=== PATIENT | male | born 1950 | race Caucasian/White ===

== ENCOUNTER 2022-12-19 11:19 | Outpatient (CLI) | payer MEDICARE | END 2022-12-19 11:20 | disposition home or self-care (01) | LOC: LAB 11:19 | PROVIDERS: ATTEND Urology | DX: C61 Malignant neoplasm of prostate (principal) | CPT/HCPCS: 36415; 84153 ==

== ENCOUNTER 2023-05-29 08:52 | Outpatient (CLI) | payer MEDICARE ==
[2023-05-29 09:06] LABS: BASOPHILS # (AUTO) 0.1 10^3/uL (0.0-0.1); BASOPHILS % (AUTO) 1.3 %; EOSINOPHILS # (AUTO) 0.3 10^3/uL (0.0-0.7); EOSINOPHILS % (AUTO) 4.5 %; HCT - HEMATOCRIT 50.6 % (42.0-52.0); HGB - HEMOGLOBIN 16.5 g/dL (14.0-18.0); LYMPHOCYTES # (AUTO) 1.5 10^3/uL (1.5-3.5); LYMPHOCYTES % (AUTO) 27.2 %; MEAN CORPUSCULAR HEMOGLOBIN 28.9 pg (27.0-31.0); MEAN CORPUSCULAR HGB CONC 32.6 g/dL (32.0-36.0); MEAN CORPUSCULAR VOLUME 88.8 fL (80.0-94.0); MEAN PLATELET VOLUME 9.8 fL (7.4-11.4); MONOCYTES # (AUTO) 0.8 10^3/uL (0.0-1.0); NEUTROPHILS # (AUTO) 2.9 10^3/uL (1.5-6.6); NEUTROPHILS % (AUTO) 52.6 %; PLT - PLATELET COUNT 285 10^3/uL (130-450); RED CELL DISTRIBUTION WIDTH 13.3 % (12.0-15.0); WHITE BLOOD COUNT 5.6 x10^3/uL (4.8-10.8)
[2023-05-29 09:17] LABS: ALBUMIN 4.4 g/dL (3.2-5.5); ALBUMIN/GLOBULIN RATIO 1.5 (1.0-2.2); ALKALINE PHOSPHATASE 52 IU/L (42-121); ALT ALANINE AMINOTRANSFERASE 24 IU/L (10-60); AST ASPARTATE AMINOTRANSFERASE 23 IU/L (10-42); BUN - BLOOD UREA NITROGEN 16 mg/dL (6-20); CALCIUM 9.6 mg/dL (8.5-10.3); CARBON DIOXIDE - CO2 28 mmol/L (21-32); CHLORIDE 105 mmol/L (101-111); CHOL/HDL RATIO 3.2 (<5.0); CHOLESTEROL 167 mg/dL; CREATININE 1.1 mg/dL (0.6-1.3); GFR - MDRD 66 (>89); GLUCOSE 104 mg/dL (74-104); HDL CHOLESTEROL 53 mg/dL; LDL CHOLESTEROL,CALCULATED 90 mg/dL; LDL/HDL RATIO 1.7 (<3.6); POTASSIUM 4.5 mmol/L (3.5-4.5); SODIUM 138 mmol/L (135-145); TOTAL PROTEIN 7.4 g/dL (6.4-8.9); TRIGLYCERIDES 121 mg/dL (48-352); VLDL CHOLESTEROL 24 mg/dL
== END 2023-05-29 08:53 | disposition home or self-care (01) ==
LOC: LAB 08:52
DX: I10 Essential (primary) hypertension (principal); E87.1 Hypo-osmolality and hyponatremia; I48.20 Chronic atrial fibrillation, unspecified; R53.1 Weakness; D50.9 Iron deficiency anemia, unspecified; E78.49 Other hyperlipidemia; R97.20 Elevated prostate specific antigen [PSA]; C61 Malignant neoplasm of prostate
CPT/HCPCS: 36415; 80053; 80061; 83721; 84153; 85025

== ENCOUNTER 2023-09-11 08:00 | Outpatient (CLI) | payer MEDICARE ==
--- NOTE | 2023-09-11 16:11 | XRAY Report ---
PROCEDURE: Chest 2V INDICATIONS: FOCAL PNEUMONIA TECHNIQUE: 2 views of the chest were acquired. COMPARISON: None. FINDINGS: Surgical changes and devices: Cine loop recorder. Lungs and pleura: No pleural effusions or pneumothorax. Lungs are clear. Mediastinum: Mediastinal contours appear normal. Heart size is normal. Bones and chest wall: No suspicious bony lesions. Overlying soft tissues appear unremarkable. IMPRESSION: No acute cardiopulmonary process. Reviewed by: Pattie Contreras MD on 09/11/2023 4:10 PM PDT Approved by: Pattie Contreras MD on 09/11/2023 4:10 PM PDT Station ID: [id number]
== END 2023-09-11 23:59 | disposition home or self-care (01) ==
LOC: DI.S 08:00
PROVIDERS: ATTEND Emergency Medicine
DX: J18.9 Pneumonia, unspecified organism (principal)

== ENCOUNTER 2023-10-02 08:10 | Outpatient (CLI) | payer MEDICARE ==
[2023-10-02 09:05] LABS: HCT - HEMATOCRIT 42.6 % (42.0-52.0); HGB - HEMOGLOBIN 14.3 g/dL (14.0-18.0); MEAN CORPUSCULAR HEMOGLOBIN 29.9 pg (27.0-31.0); MEAN CORPUSCULAR HGB CONC 33.6 g/dL (32.0-36.0); MEAN CORPUSCULAR VOLUME 89.1 fL (80.0-94.0); MEAN PLATELET VOLUME 9.7 fL (7.4-11.4); RED BLOOD COUNT 4.78 10^6/uL (4.70-6.10); RED CELL DISTRIBUTION WIDTH 12.5 % (12.0-15.0); WHITE BLOOD COUNT 5.5 x10^3/uL (4.8-10.8)
== END 2023-10-02 08:11 | disposition home or self-care (01) ==
LOC: LAB 08:10
PROVIDERS: ATTEND Urology
DX: E29.1 Testicular hypofunction (principal); R53.83 Other fatigue; C61 Malignant neoplasm of prostate
CPT/HCPCS: 36415; 84153; 84403; 85027

== ENCOUNTER 2023-11-07 08:51 | Outpatient (CLI) | payer MEDICARE ==
--- NOTE | 2023-11-07 10:08 | XRAY Report ---
PROCEDURE: Ankle 3+V RT INDICATIONS: HEEL PAIN,RIGHT TECHNIQUE: 3 views of the ankle were acquired. COMPARISON: None. FINDINGS: Bones: No fractures or dislocations. Ankle mortise is normally aligned. No suspicious bony lesions . Soft tissues: No tibiotalar joint effusion. Achilles tendon appears normal. IMPRESSION: No acute bony abnormality. No significant joint effusion. Reviewed by: Yuan Espana MD on 11/07/2023 9:07 AM ANICETO Approved by: Yuan Espana MD on 11/07/2023 9:07 AM AKCOSTA Station ID: [id number]
== END 2023-11-07 08:52 | disposition home or self-care (01) ==
LOC: DI.S 08:51
PROVIDERS: ATTEND Physician Assistant Surgical
DX: M79.671 Pain in right foot (principal)

== ENCOUNTER 2023-11-27 08:00 | Outpatient (CLI) | payer MEDICARE ==
--- NOTE | 2023-11-27 13:18 | XRAY Report ---
PROCEDURE: Chest 2V INDICATIONS: ACUTE COUGH TECHNIQUE: 2 views of the chest were acquired. COMPARISON: 09/11/2023. FINDINGS: Surgical changes and devices: Left chest wall pacing device is seen. Lungs and pleura: No pleural effusions or pneumothorax. Lungs are clear. Mediastinum: Mediastinal contours appear normal. Heart size is normal. Bones and chest wall: No suspicious bony lesions. Overlying soft tissues appear unremarkable. IMPRESSION: No acute cardiopulmonary process. Reviewed by: Anastacio Warren MD on 11/27/2023 1:16 PM PDT Approved by: Anastacio Warren MD on 11/27/2023 1:16 PM PDT Station ID: [id number]
== END 2023-11-27 23:59 | disposition home or self-care (01) ==
LOC: DI.S 08:00
PROVIDERS: ATTEND Registered Nurse
DX: R05.1 Acute cough (principal); Z87.01 Personal history of pneumonia (recurrent)

== ENCOUNTER 2023-11-27 08:00 | Outpatient (CLI) | payer MEDICARE | END 2023-11-27 23:59 | disposition home or self-care (01) | LOC: LAB.S 08:00 | PROVIDERS: ATTEND Registered Nurse | DX: R05.1 Acute cough (principal); Z87.01 Personal history of pneumonia (recurrent) ==

== ENCOUNTER 2024-07-13 13:58 | Observation (INO) ==
--- NOTE | 2024-07-13 14:50 | ED Physician Documentation ---
PD HPI CHEST PAIN Stated complaint Stated Complaint: CHEST PX,LT EYE VISION LOSS Chief complaint Chief Complaint: Neuro Additional information Additional information: 74-year-old male with history of a flutter requiring an ablation, BPH, hyperlipidemia has loop recorder presents emergency department for concerns of left vision loss, chest pain, double/quadruple vision changes. Patient says that this happened about a couple weeks ago he followed up with his blow down helper Dr. Padilla who decided to put him back on Eliquis and sotalol. Today while he was walking around he started to notice left vision changes again describes it as the clarity of the picture was very blurred having a hard time thinking imaging and then this lasted for about 15 seconds and turned into double/quadruple vision followed by chest pain that lasted for about 15 seconds. Patient says for about the last month now he is also been experiencing increased shortness of breath with minimal exertion which is atypical for him. No nausea or vomiting vision is resolved back to normal now his chest pain is also back to normal now. Jane Coma Scale Assess Eye opening: Spontaneous Verbal response: Oriented Motor response: Obeys Commands Total score: 15 Meds/Allgy Home Medications Ambulatory Orders Medication Instructions Recorded Confirmed simvastatin 20 mg tablet (Zocor) 20 mg PO QPM 10/02/23 07/13/24 tadalafil 5 mg tablet See Rx Instructions .Route 02/12/24 07/13/24 .COMPLEX #90 tabs testosterone cypionate 100 mg/mL 80 mg (0.8 mL) IM QWEEK #10 mL 05/28/24 07/13/24 intramuscular oil apixaban 5 mg tablet (Eliquis) 5 mg PO BID 07/13/24 07/13/24 sotalol 80 mg tablet 80 mg PO DAILY 07/13/24 07/13/24 Allergies Allergies Allergy/AdvReac Type Severity Reaction Status Date / Time ibuprofen Allergy Mild Unknown Verified 07/13/24 14:46 PFSH Active Problems All Active Problems (Updated 07/13/24 @ 20:00 by Maurice Monteiro DNP) Symptomatic anemia (Acute) Chest pain (Acute) Blurred vision (Acute) Melena (Acute) Anemia (Acute) TIA (transient ischemic attack) (Acute) Prostate cancer (Acute) Enlarged prostate (Acute) Screening for thyroid disorder (Acute) Long-term use of high-risk medication (Acute) Hx of atrial flutter (Acute) Hypogonadism male (Acute) Hx of malignant neoplasm of prostate (Acute) Hyperlipidemia (Acute) Preventative health care (Acute) Medical History Medical History (Updated 07/13/24 @ 20:00 by Maurice Monteiro DNP) Atrial flutter Surgical History Surgical History H/O shoulder surgery S/P ablation of atrial flutter Family History Family History (Updated 02/18/24 @ 12:04 by Unique Connelly MA) Father Heart attack Mother CVA (cerebral vascular accident) Brother Alcoholism Social History Social History (Updated 07/13/24 @ 14:19 by Michael Carmona, RN) Smoking Status: Never smoker Do you dip or chew tobacco?: No Do you vape?: No Living arrangement: At home Marital Status: Relationship: Level: Independent Do you feel safe in your home environment?: Yes Suffered physical, verbal, emotional, or financial abuse?: No History of Abuse: No Frequency: Occasional Substance Use: denies use POLST Patient has POLST: No Exam Constitutional normal general appearance, no apparent distress, average body habitus, no limitations and alert HENMT normocephalic Eyes PERRL Chest inspection of chest normal Respiratory breath sounds equal bilaterally and normal respiratory effort Cardiovascular normal heart rate noted and regular rhythm noted Gastrointestinal abdomen normal to inspection, abdomen soft to palpation, nontender to palpation, nondistended and normoactive bowel sounds Extremities normal to inspection Skin skin color abnormal (pale) Results Vitals Vitals: Vital Signs - 24 hr 07/13/24 14:09 07/13/24 14:17 07/13/24 16:17 Temperature 36.4 C L Temperature Source Temporal Artery Scan Pulse Rate 73 72 68 Respiratory Rate 18 19 14 Blood Pressure 135/72 H 135/70 H 145/77 H O2 Saturation 100 98 99 O2 Source Room air Room air Room air Pain Intensity 0 0 0 07/13/24 18:00 Temperature Temperature Source Pulse Rate 69 Respiratory Rate 16 Blood Pressure 141/75 H O2 Saturation 98 O2 Source Room air Pain Intensity 0 Oxygen O2 Source Room air EKG (time done) 1429: EKG releavant findings:: EKG personally interpreted by author of this note. Relevant findings are: Rate: Rate (enter#) (71) Rhythm: NSR and Other (PVCs) Grace: Normal Intervals: Normal GA Ischemia: Normal ST segments Computer interpretation: Agree with computer Labs Labs: Microbiology 07/13/24 18:25 Occult Blood - Final Stool Laboratory Tests 07/13/24 07/13/24 07/13/24 15:08 18:04 18:36 WBC 7.3 RBC 3.27 L Hgb 8.1 L 8.3 L Hct 26.6 L 28.0 L MCV 81.3 MCH 24.8 L MCHC 30.5 L RDW 14.5 Plt Count 464 H MPV 9.4 Neut # (Auto) 3.3 Lymph # (Auto) 1.7 [place] # (Auto) 1.1 H Eos # (Auto) 1.0 H Baso # (Auto) 0.2 H Absolute Nucleated RBC 0.00 Nucleated RBC % 0.0 ESR 18 D-Dimer < 200.0 L Sodium 135 Potassium 4.1 Chloride 107 Carbon Dioxide 24 Anion Gap 4.0 L BUN 19 Creatinine 1.1 Estimated GFR (MDRD) 65 L Glucose 94 Calcium 8.8 Total Bilirubin 1.0 AST 11 ALT 12 Alkaline Phosphatase 49 Troponin I High Sens 6.9 7.2 C-Reactive Protein < 0.5 Total Protein 6.4 Albumin 3.8 Globulin 2.6 Albumin/Globulin Ratio 1.5 Lipase 38 Rads (name of study) Chest x-ray: Relevant Findings:: Final report received and EMP independent interpretation of test Interpretation: IMPRESSION: No acute cardiopulmonary process. ct angio head/neck: Relevant Findings:: Final report received and EMP independent interpretation of test Interpretation: IMPRESSION: No significant intracranial arterial abnormality is seen. No significant abnormality is seen within the arteries of the neck, with note made of a 50% narrowing at the origin of the right internal carotid artery. CT head without: Relevant Findings:: Final report received and EMP independent interpretation of test Interpretation: IMPRESSION: No acute intracranial pathology. No intracranial hemorrhage is seen. If there is strong clinical concern for a stroke, please consider a dedicated brain MRI for further evaluation (assuming that there is no contraindication to MRI). PD Medical Decision Making ED course Complexity details: reviewed results, re-evaluated patient, d/w patient, d/w family and d/w eligibility consultant [facility] ED course: 74-year-old male presents emergency department for concerns of left eye vision change that lasted for about 15 seconds followed by chest pain. Patient has history of A-fib/a flutter for some reason he was taken off of his Eliquis and was just recently restarted on his Eliquis for similar episode that happened a couple weeks ago by his blow down helper Dr. Padilla. He endorses and feeling shortness of breath fatigue and dizziness now for the last several months. His hemoglobin in April of this year was 14 with a hematocrit of 44.7 it was rechecked today and his hemoglobin has come down to 8.1 with a hematocrit of 26.6. Patient does endorse some dark black bowel movements he says that he suffered from H. pylori about 4 to 5 years ago and was starting to take iron supplements which was intermittently helping so he was uncertain if he was having dark black bowel movements from the iron supplements or from melena. Last echogram was a couple days ago no hematemesis. D-dimer is negative making me less suspicious or concern for possible PE or DVT. A chest x-ray was complete for further evaluation given he had chest pain he had no acute cardiopulmonary abnormalities or findings CT head without was also complete which did not reveal any acute intracranial hemorrhages or other ab normalities. CT angio head and neck was also complete showed right narrowing of the right internal carotid artery but this would not explain the left vision loss. EKG shows normal sinus rhythm with PVCs and delta troponins are flat. Given that patient is having symptomatic anemia believe that he would benefit from hospitalization. I spoke with hospitalist Cyn Wagner who has agreed to admit the patient she did request a consult with neurology and I consulted with cardiology. Cardiology Dr. Live with [facility] does not think that patient needs to be transferred he recommends holding off on Eliquis until we can figure out source of bleeding for symptomatic anemia, guaiac positive for heme. Neurology Dr. Guzman does not think that transfer is required he said to go ahead and pursue a brain MRI tomorrow this sounds like it could likely be related to Optho but to go ahead and do an ESR CRP to rule out possible temporal arteritis which she has a low suspicion of. Patient is agreeable to stay, DENISE Azul hospitalist is admitting patient greatly appreciate her support and collaboration with patient. Discharge Plan Discharge Patient Disposition: ED Place in Observation Condition: Stable Clinical Impression: Blurred vision, Chest pain, Symptomatic anemia Interventions: ED Admission Assessment Last Done: 07/13/24 19:36
[2024-07-13 15:13] LABS: BASOPHILS # (AUTO) 0.2 10^3/uL (0.0-0.1); BASOPHILS % (AUTO) 2.3 %; EOSINOPHILS % (AUTO) 13.4 %; HCT - HEMATOCRIT 26.6 % (42.0-52.0); HGB - HEMOGLOBIN 8.1 g/dL (14.0-18.0); LYMPHOCYTES # (AUTO) 1.7 10^3/uL (1.5-3.5); LYMPHOCYTES % (AUTO) 23.4 %; MEAN CORPUSCULAR HEMOGLOBIN 24.8 pg (27.0-31.0); MEAN CORPUSCULAR HGB CONC 30.5 g/dL (32.0-36.0); MEAN CORPUSCULAR VOLUME 81.3 fL (80.0-94.0); MEAN PLATELET VOLUME 9.4 fL (7.4-11.4); MONOCYTES # (AUTO) 1.1 10^3/uL (0.0-1.0); MONOCYTES % (AUTO) 15.4 %; NEUTROPHILS # (AUTO) 3.3 10^3/uL (1.5-6.6); NEUTROPHILS % (AUTO) 45.1 %; PLT - PLATELET COUNT 464 10^3/uL (130-450); RED BLOOD COUNT 3.27 10^6/uL (4.70-6.10); RED CELL DISTRIBUTION WIDTH 14.5 % (12.0-15.0); WHITE BLOOD COUNT 7.3 x10^3/uL (4.8-10.8)
[2024-07-13 15:28] LABS: ALBUMIN 3.8 g/dL (3.2-5.5); ALBUMIN/GLOBULIN RATIO 1.5 (1.0-2.2); CALCIUM 8.8 mg/dL (8.5-10.3); CREATININE 1.1 mg/dL (0.6-1.3); POTASSIUM 4.1 mmol/L (3.5-4.5); TOTAL PROTEIN 6.4 g/dL (6.4-8.9)
[2024-07-13 15:34] LABS: TROPONIN I HIGH SENSITIVITY 6.9 ng/L (2.3-19.7)
--- NOTE | 2024-07-13 15:47 | XRAY Report ---
PROCEDURE: XR Chest 1V INDICATIONS: Chest Pain TECHNIQUE: One view of the chest was acquired. COMPARISON: Chest x-ray 11/27/2023 FINDINGS: Surgical changes and devices: Implantable loop recorder device overlying the left heart silhouette Lungs and pleura: No pleural effusions or pneumothorax. No consolidation. Mediastinum: Mediastinal contours appear normal. Heart size is normal. Bones and chest wall: No suspicious bony lesions. Overlying soft tissues appear unremarkable. IMPRESSION: No acute cardiopulmonary process. Reviewed by: Danny Coyle MD on 07/13/2024 2:45 PM AKDT Approved by: Danny Coyle MD on 07/13/2024 2:45 PM AKDT Station ID: [id number]
[2024-07-13] MEDS ORDERED: iohexoL-300 100 ML VIAL ONE (15:55)
[2024-07-13] MEDS: iohexoL-300 100 ML VIAL IVP ONE (16:39)
--- NOTE | 2024-07-13 16:57 | CT Report ---
PROCEDURE: CT Angio Head/Neck INDICATIONS: left eye vision changes, double vision TECHNIQUE: After the administration of intravenous contrast, 1 mm thick sections acquired from the aortic arch t hrough the [place] of [place]. 3-dimensional zibilns-nhignejqo-znwmiaevbv (MIP) and/or volume renderin g reformats were acquired of the central intracranial vasculature and neck separately. For radiation dose reduction, the following was used: automated exposure control, adjustment of mA and/or kV acco rding to patient size. CONTRAST: 80 ML OMNI COMPARISON: Correlation is made with the accompanying imaging. FINDINGS: Image quality: There is streak artifact seen through the level of the shoulders. There is artifact a ssociated with the metallic dental work. HEAD CT: CSF Spaces: Basal cisterns are patent. No extra-axial fluid collections. Ventricles are normal in size and shape. Brain: No significant abnormality is seen for scanning technique. Skull and face: Calvarium and visualized facial bones appear intact, without suspicious lesions. Sinuses: Generalized moderate nasal thickening can be seen throughout the paranasal sinuses. No signi ficant abnormal fluid can be seen within the mastoid air cells. . HEAD CT ANGIOGRAPHY: Anterior circulation: Intracranial internal carotid arteries are normal in size and flow. The flow within the paired anterior cerebral arteries is normal and symmetric. The flow within the middle cer ebral arteries is normal and symmetric. The anterior communicating artery is seen. No aneurysms are seen. Posterior circulation: Visualized portions of the vertebral arteries demonstrate normal caliber, and join to form a normal appearing basilar artery. Flow within the posterior cerebral arteries is norm al and symmetric. No aneurysms are seen. NECK CT ANGIOGRAPHY: Carotid system: The great vessels demonstrate a conventional anatomy as they arise from the aortic a rch. The origins of the common carotid arteries appear patent. The common carotid arteries demonstr ate normal caliber and courses. The bifurcation regions demonstrate atherosclerotic irregularity and calcification. On the right, there is a 50% stenosis of the internal carotid artery origin. No signi ficant stenosis can be seen on the left. The internal carotid arteries demonstrate normal calibers an d courses. Posterior circulation: The origins of the vertebral arteries both appear widely patent. The more rainey perior extracranial portions of both vertebral arteries also demonstrate normal courses and calibers. They join to form a normal appearing basilar artery. Soft tissues: Visualized neck soft tissues demonstrate no suspicious abnormalities. Bones: No suspicious bony lesions. Visualized cervical spine appears normally aligned. Moderate ce rvical spine degenerative change can be seen. IMPRESSION: No significant intracranial arterial abnormality is seen. No significant abnormality is seen within the arteries of the neck, with note made of a 50% narrowing at the origin of the right internal carotid artery. The estimate of stenosis included in the report of the imaging study was calculated using the NASCET method Reviewed by: Silver Patterson MD on 07/13/2024 3:56 PM ANICETO Approved by: Silver Patterson MD on 07/13/2024 3:56 PM ANICETO Station ID: [id number]
--- NOTE | 2024-07-13 16:58 | CT Report ---
PROCEDURE: CT Head WO INDICATIONS: left vision changes TECHNIQUE: Noncontrast 4.5 mm thick angled axial sections acquired from the foramen magnum to the vertex. For r adiation dose reduction, the following was used: automated exposure control, adjustment of mA and/or kV according to patient size. COMPARISON: Correlation is made with the accompanying imaging. FINDINGS: Image quality: Excellent. CSF spaces: Basal cisterns are patent. No extra-axial fluid collections. Ventricles are normal in size and shape. Brain: No midline shift. No intracranial masses or hemorrhage. [place]-white matter interface is norm al. Skull and face: Calvarium and visualized facial bones are intact, without suspicious lesions. Sinuses: Visualized sinuses and mastoids are clear. IMPRESSION: No acute intracranial pathology. No intracranial hemorrhage is seen. If there is strong clinical concern for a stroke, please consider a dedicated brain MRI for further e valuation (assuming that there is no contraindication to MRI). Reviewed by: Silver Patterson MD on 07/13/2024 3:56 PM ANICETO Approved by: Silver Patterson MD on 07/13/2024 3:56 PM ANICETO Station ID: [id number]
--- NOTE | 2024-07-13 18:19 | HISTORY & PHYSICAL EXAMINATION ---
Chief Complaint Chief Complaint Chief Complaint: feeling weak and dizzy History of Present Illness Admitted From Admitted From:: home History Obtained From Records Reviewed: PCP and urology visits History of Present Illness HPI Comment/Other: 74 yo male who presents to ED this afternoon with complaints of feeling poorly. for the last 2-3 weeks has had CP and decreased exercise tolerance. Saw ethylbenzene converter operator, then was restarted on Eliquis and sotolol (paroxysmal a fib s/p ablation) within the last week. previously was on ASA. Today came to ED because he had an episode of his left eye "graying out". this lasted about 15 sec, and now patient is back to normal. no headaches. He has had 1 additional episode of this in the last week or so He notes that on 06/02 he started to notice that he gets out of breath when he walks his dog. he has always enjoyed a high level of cardiovascular fitness. It was about 5 weeks ago that he noted that his heart rate, which is normally in the 60's started to be in the 70's and 80's. Around this time, also noted that he was getting short breath when he walked the dog. notes intermittent abdominal bloating, and feeling "gurgly" in his abdomen which is often followed by a melanotic stool, since about mid May. He has a history of paroxysmal atrial fibrillation. He is status post ablation. His cardiologists are Refugio Padilla and Sukhdeep Ponce at [facility]. When he started to notice this shortness of breath and chest discomfort he called his ethylbenzene converter operator who recommended that he restart his sotalol and his Eliquis. Less than a week ago he started sotalol 80 mg at at bedtime and Eliquis 5 mg twice daily. He was previously on tadalafil 2.5 mg a day for prostate cancer testosterone once weekly and D3. As noted above he had also been on aspirin but dropped this in favor of the Eliquis. He has noted intermittent melena for quite a long time. He has been treated for H. pylori in the past. He notes that this was diagnosed in April 2021 at [facility] when he had previous GI bleed and was treated with endoscopy and colonoscopy and thus the H. pylori diagnosis. He has been on a statin since he was in his 50s. He had an elevated coronary calcium score many years ago and was started on a statin at that time but really has not had any problems until the atrial fibrillation came up. He has a loop recorder, unclear if that is MRI compatible. He states he does have an advanced directive but has been a long time since he is thought about that. He does not have a POLST. He does not know what he would want his CODE STATUS to be. He notes that his Jody would be his surrogate decision maker should he need 1. I am making him full code until he can think about this more. Hgb was 14.1 on 05/16/24. It is 8.1 today. Meds/Allgy Home Medications Ambulatory Orders Medication Instructions Recorded Confirmed simvastatin 20 mg tablet (Zocor) 20 mg PO QPM 10/02/23 07/13/24 tadalafil 5 mg tablet See Rx Instructions .Route 02/12/24 07/13/24 .COMPLEX #90 tabs testosterone cypionate 100 mg/mL 80 mg (0.8 mL) IM QWEEK #10 mL 05/28/24 07/13/24 intramuscular oil apixaban 5 mg tablet (Eliquis) 5 mg PO BID 07/13/24 07/13/24 sotalol 80 mg tablet 80 mg PO DAILY 07/13/24 07/13/24 Allergies Allergies Allergy/AdvReac Type Severity Reaction Status Date / Time ibuprofen Allergy Mild Unknown Verified 07/13/24 14:46 PFSH Active Problems All Active Problems (Updated 07/13/24 @ 18:24 by DENISE Azul) Melena (Acute) Anemia (Acute) TIA (transient ischemic attack) (Acute) Prostate cancer (Acute) Enlarged prostate (Acute) Screening for thyroid disorder (Acute) Long-term use of high-risk medication (Acute) Hx of atrial flutter (Acute) Hypogonadism male (Acute) Hx of malignant neoplasm of prostate (Acute) Hyperlipidemia (Acute) Preventative health care (Acute) Medical History Medical History (Updated 07/13/24 @ 18:24 by DENISE Azul) Atrial flutter Surgical History Surgical History H/O shoulder surgery S/P ablation of atrial flutter Family History Family History (Updated 02/18/24 @ 12:04 by Unique Connelly MA) Father Heart attack Mother CVA (cerebral vascular accident) Brother Alcoholism Social History Social History (Updated 07/13/24 @ 14:19 by Michael Carmona RN) Smoking Status: Never smoker Do you dip or chew tobacco?: No Do you vape?: No Living arrangement: At home Marital Status: Relationship: Level: Independent Do you feel safe in your home environment?: Yes Suffered physical, verbal, emotional, or financial abuse?: No History of Abuse: No Frequency: Occasional Substance Use: denies use POLST Patient has POLST: No Conclusion/Plan Problem List (1) Anemia: Plan: symptomatic anemia. Not tachycardic but beta blocked. no hypotension, but having HERNANDEZ, and dizziness. his visual symptoms could be secondary to his symptomatic anemia, or could be neurological in nature. I will get iron studies with a.m. labs and treat with iron and B vitamins as indicated I will follow hemoglobins every 6 hours. I have discussed this patient with Maurice Monteiro in the emergency department decision was made to admit him for workup of his anemia and neurological symptoms. She states that he is guaiac positive from below. Emergency department has consulted general surgery, Dr. Raphael who will assist with possible endoscopy/colonoscopy. Patient has history of the same in April 2021 at [facility]. At that time he was diagnosed with H. pylori and treated appropriately. He has had intermittent melanotic stools for about 5 weeks. He has only been restarted on his Eliquis for about 5 days.I am holding his Eliquis on admission (2) TIA (transient ischemic attack): Plan: Patient with intermittent visual blurring episodes which have happened twice now. This is not like a shade being pulled over his eyes but rather a visual graying that seems to spontaneously resolve. He denies any history of stroke or TIA. He has been on a statin since he was in his 50s due to an elevated coronary calcium score. CTA of the head neck does call attention to a 50% stenosis of the right internal carotid artery. There is no evidence of CVA seen on CT nor does patient have any persistent neurologic deficits at this time. I will admit the patient to observation status. I will place him on telemetry. I will hold his Eliquis (due to likely GI bleed) but continue his beta-raji. I will order MRI of the head for the morning to rule out any occult stroke. Emergency department consulted neurology who recommended ESR and CRP and to start steroids for possible optic neuritis if the acute phase reactants were positive. His CRP is less than 0.5. His ESR is 18. There is no indication to start steroids at this time. (3) Hx of atrial flutter: Plan: No episodes of tachycardia since presenting to the emergency department. He has a history of paroxysmal atrial fibrillation. He is status post ablation some years ago. He has done well with this but started to have symptoms as described above several weeks ago. He may contact with his ethylbenzene converter operator who is planning a stress test and echocardiogram in the near future. I will be checking an echocardiogram as part of his neurological workup. I am holding his Eliquis but continuing his beta-raji (4) Melena: Plan: Guaiac positive in the emergency department. Patient with a hemoglobin of 14.1 on 05/16/2024 and 8.1 on presentation to the emergency department today. This is symptomatic as he has been experiencing dizziness and shortness of breath on exertion. I think it is possible that his visual changes are also related to his symptomatic anemia but will continue with stroke workup in the instance that this was a TIA (5) Prostate cancer: Plan: He is on tadalafil 2.5 mg a day at home. I will continue this. He also takes estrogen injections weekly. He is under the care of Dr. Heath of urology. Plan Admission for symptomatic anemia/GI bleed, possible TIA. See treatment pathway above. I am admitting him to observation status overnight and will consider conversion to inpatient status depending on findings of serial labs, telemetry monitoring and the opinion of the general surgeon. I have spent 85 minutes in the care of this patient today. This includes time cxso-me-joyy, review and ordering of diagnostic imaging and laboratory studies and consultation with other providers. Monitoring the patient's signs symptoms, evaluation of medication effectiveness and patient's response to treatment. Lab Results Lab results reviewed: Yes 07/13/24 18:36 07/13/24 15:08 EKG Results EKG Interpreted Independently: Yes EKG Findings: sinus w PVCs Core Measures Anticipated LOS I expect patient to be DC'd or transferred within 96 hours.: Yes Issues Hospital Issues and Management Plan: symptomatic anemia vs neurological issues causing his vision changes. Will pursue stroke workup as well as anemia workup. ED spoke with neurology who recommended checking ESR and CRP for elevation, and if positive, consider temporal arteritis. Hgb much lower than baseline. Will admit for echo, telemetry, MRI brain, serial hemoglobins, iron studies, gen surg to consult for possible endoscopy. Will hold eliquis in light of GIB, continue beta raji. DVT/VTE - Prophylaxis VTE/DVT Device ordered at admit?: Yes VTE/DVT Prophylaxis med ordered at admit?: No Not Ordered - Medical Reason: Contraindicated
[2024-07-13] MEDS: ASPIRIN CHEW 81 MG TABLET PO STA (18:33)
[2024-07-13 18:40] LABS: HGB - HEMOGLOBIN 8.3 g/dL (14.0-18.0)
[2024-07-13] MEDS ORDERED: ONDANSETRON ODT 4 MG TABLET TL PRN (19:37)
[2024-07-13] MEDS ORDERED: SODIUM CHLORIDE FLUSH 0.9% 10 ML SYRINGE IVP PRN (19:37)
[2024-07-13 20:00] LABS: IRON < 10 ug/dL (50-212); TOTAL IRON BINDING CAPACITY 531 ug/dL (250-450); TRANSFERRIN 379 mg/dL (203-362)
[2024-07-13] MEDS: ATORVASTATIN 10 MG TABLET PO SCH (20:45)
[2024-07-13] MEDS: SOTALOL 80 MG TABLET PO SCH (20:46)
[2024-07-13] MEDS: FAMOTIDINE 20 MG/2 ML VIAL IVP SCH (20:46)
[2024-07-14] MEDS: SODIUM CHLORIDE 0.9% 1,000 ML IV SCH (00:52)
[2024-07-14] MEDS: ACETAMINOPHEN 325 MG TABLET PO PRN (00:53)
[2024-07-14] MEDS: SODIUM CHLORIDE FLUSH 0.9% 10 ML SYRINGE IVP SCH (00:53)
[2024-07-14 05:29] LABS: BASOPHILS # (AUTO) 0.2 10^3/uL (0.0-0.1); BASOPHILS % (AUTO) 2.6 %; EOSINOPHILS % (AUTO) 14.3 %; HCT - HEMATOCRIT 26.9 % (42.0-52.0); LYMPHOCYTES # (AUTO) 1.7 10^3/uL (1.5-3.5); LYMPHOCYTES % (AUTO) 24.1 %; MEAN CORPUSCULAR HGB CONC 29.7 g/dL (32.0-36.0); MEAN CORPUSCULAR VOLUME 80.8 fL (80.0-94.0); MEAN PLATELET VOLUME 9.6 fL (7.4-11.4); MONOCYTES % (AUTO) 13.2 %; NEUTROPHILS # (AUTO) 3.3 10^3/uL (1.5-6.6); NEUTROPHILS % (AUTO) 45.5 %; PLT - PLATELET COUNT 482 10^3/uL (130-450); RED BLOOD COUNT 3.33 10^6/uL (4.70-6.10); RED CELL DISTRIBUTION WIDTH 14.6 % (12.0-15.0); WHITE BLOOD COUNT 7.2 x10^3/uL (4.8-10.8)
[2024-07-14 05:44] LABS: CALCIUM 8.4 mg/dL (8.5-10.3); CREATININE 1.1 mg/dL (0.6-1.3); POTASSIUM 4.1 mmol/L (3.5-4.5)
[2024-07-14 06:35] LABS: DIFFERENTIAL COMMENT MANUAL=AUTO DIFF; PLATELET ESTIMATE, MANUAL INCREASED (>450,000) (NORMAL); PLATELET MORPHOLOGY NORMAL APPEARANCE (NORMAL); RBC MORPHOLOGY (MULTIPLE) 1+ HYPOCHROMASIA (NORMAL); WBC MORPHOLOGY (MULTIPLE) NORMAL APPEARANCE (NORMAL)
--- NOTE | 2024-07-14 10:32 | CONSULTATION NOTE ---
Referring Provider Name of Referring Provider:: Conrad Martinez) Consult Date: 07/14/24 Chief Complaint Chief Complaint Chief Complaint: I've been feeling lightheaded History of Present Illness Admitted From Admitted From:: ED History Obtained From Records Reviewed: yes ([facility] records being obtained) History obtained from: patient, primary team, chart Exam Limitations: none History of Present Illness HPI Comment/Other: This is a very pleasant 74-year-old gentleman who has a remote history of atrial flutter which was treated with a cardiac ablation several years ago. He also has a history of prostate cancer. He had melena in 2021 and had upper and lower endoscopy at that time. He was found to have H. pylori which was treated. The patient reports he was drinking "too much" hard alcohol (whiskey and vodka) around the time of this diagnosis, and cut down to 1 to 2 glasses of wine per day until about 2 weeks ago when he stopped drinking alcohol and caffeine altogether. He does not use any tobacco products. The patient reports an episode of lightheadedness and double vision 2 weeks ago. After this episode, he talked to his rack loader who stated that his loop recorder demonstrated atrial fibrillation. At that time, the patient was started back on Eliquis and sotalol. The patient also reports using Aleve and taking aspirin, but stopped these medications prior to starting on Eliquis. He has only been using Tylenol for pain for the last 2 weeks. The patient was previously on iron, which she stopped at least 2 weeks ago. When he was taking iron, he reports constipation and black stools. He thinks he may have had 1 or 2 dark stools since starting on Eliquis. His last bowel movement was this morning, and was "Tootsie Roll brown". He reports occasional decreased caliber of stool when he is having softer bowel movements, but has normal caliber stool when he is constipated. He reports occasional bloating and abdominal discomfort when he is constipated, with but this is relieved with bowel movements. He denies any recent unintentional weight loss. He has no family history of colon cancer or inflammatory bowel disease. [facility] Active Problems All Active Problems Symptomatic anemia (Acute) Chest pain (Acute) Blurred vision (Acute) Melena (Acute) Anemia (Acute) TIA (transient ischemic attack) (Acute) Prostate cancer (Acute) Enlarged prostate (Acute) Screening for thyroid disorder (Acute) Long-term use of high-risk medication (Acute) Hx of atrial flutter (Acute) Hypogonadism male (Acute) Hx of malignant neoplasm of prostate (Acute) Hyperlipidemia (Acute) Preventative health care (Acute) Medical History Medical History Atrial flutter Surgical History Surgical History H/O shoulder surgery left S/P ablation of atrial flutter Family History Family History Father Heart attack Mother CVA (cerebral vascular accident) Brother Alcoholism Social History Social History (Updated 07/14/24 @ 10:36 by Marla Gonzalez MD) Smoking Status: Never smoker Do you dip or chew tobacco?: No Do you vape?: No Living arrangement: At home Marital Status: Relationship: Level: Independent Do you feel safe in your home environment?: Yes Suffered physical, verbal, emotional, or financial abuse?: No History of Abuse: No Frequency: Daily ETOH Use Details: 1-2 Glasses of wine per day, stopped drinking alcohol about 2 weeks ago (06/27/24) Substance Use: denies use Occupation: residential solar consultant Retired: No POLST Patient has POLST: No Meds/Allgy Home Medications Ambulatory Orders Medication Instructions Recorded Confirmed simvastatin 20 mg tablet (Zocor) 20 mg PO QPM 10/02/23 07/13/24 tadalafil 5 mg tablet See Rx Instructions .Route 02/12/24 07/13/24 .COMPLEX #90 tabs testosterone cypionate 100 mg/mL 80 mg (0.8 mL) IM QWEEK #10 mL 05/28/24 07/13/24 intramuscular oil apixaban 5 mg tablet (Eliquis) 5 mg PO BID 07/13/24 07/13/24 sotalol 80 mg tablet 80 mg PO DAILY 07/13/24 07/13/24 Allergies Allergies Allergy/AdvReac Type Severity Reaction Status Date / Time ibuprofen Allergy Mild Unknown Verified 07/13/24 14:46 Results Lab Results 07/14/24 10:06 07/14/24 05:16 Other Lab Results: Lab Results x24hrs 07/14/24 07/14/24 07/14/24 Range/Units 10:06 05:16 02:05 WBC 7.2 (4.8-10.8) x10^3/uL RBC 3.33 L (4.70-6.10) 10^6/uL Hgb 8.3 L 8.0 L 7.8 L (14.0-18.0) g/dL Hct 26.9 L (42.0-52.0) % MCV 80.8 (80.0-94.0) fL MCH 24.0 L (27.0-31.0) pg MCHC 29.7 L (32.0-36.0) g/dL RDW 14.6 (12.0-15.0) % Plt Count 482 H (130-450) 10^3/uL MPV 9.6 (7.4-11.4) fL Neut # (Auto) 3.3 (1.5-6.6) 10^3/uL Lymph # (Auto) 1.7 (1.5-3.5) 10^3/uL [place] # (Auto) 1.0 (0.0-1.0) 10^3/uL Eos # (Auto) 1.0 H (0.0-0.7) 10^3/uL Baso # (Auto) 0.2 H (0.0-0.1) 10^3/uL Absolute Nucleated RBC 0.00 x10^3/uL Band Neuts % (Manual) Not Reportable Abnorm Lymph % (Manual) Not Reportable Nucleated RBC % 0.0 /100WBC Neutrophils # (Manual) Not Reportable Lymphocytes # (Manual) Not Reportable Monocytes # (Manual) Not Reportable Eosinophils # (Manual) Not Reportable Basophils # (Manual) Not Reportable Differential Comment MANUAL=AUTO DIFF WBC Morphology NORMAL APPEARANCE (NORMAL) Platelet Estimate INCREASED (>450,000) (NORMAL) Platelet Morphology NORMAL APPEARANCE (NORMAL) RBC Morph Micro Appear 1+ HYPOCHROMASIA (NORMAL) ESR (0-20) mm/Hr D-Dimer (200.0-255.0) ng/mL Sodium 136 (135-145) mmol/L Potassium 4.1 (3.5-4.5) mmol/L Chloride 109 (101-111) mmol/L Carbon Dioxide 22 (21-32) mmol/L Anion Gap 5.0 L (6-13) BUN 14 (6-20) mg/dL Creatinine 1.1 (0.6-1.3) mg/dL Estimated GFR (MDRD) 65 L (>89) Glucose 94 (74-104) mg/dL Calcium 8.4 L (8.5-10.3) mg/dL Iron (50-212) ug/dL TIBC (250-450) ug/dL % Saturation Transferrin (203-362) mg/dL Total Bilirubin (0.2-1.0) mg/dL AST (10-42) IU/L ALT (10-60) IU/L Alkaline Phosphatase (42-121) IU/L Troponin I High Sens (2.3-19.7) ng/L C-Reactive Protein (<0.5) mg/dL Total Protein (6.4-8.9) g/dL Albumin (3.2-5.5) g/dL Globulin (2.1-4.2) g/dL Albumin/Globulin Ratio (1.0-2.2) Lipase (11-82) U/L Blood Type O POSITIVE Blood Type Recheck Antibody Screen NEGATIVE Crossmatch IS Only See Detail 07/13/24 07/13/24 07/13/24 Range/Units 19:36 18:36 18:04 WBC (4.8-10.8) x10^3/uL RBC (4.70-6.10) 10^6/uL Hgb 8.3 L (14.0-18.0) g/dL Hct 28.0 L (42.0-52.0) % MCV (80.0-94.0) fL MCH (27.0-31.0) pg MCHC (32.0-36.0) g/dL RDW (12.0-15.0) % Plt Count (130-450) 10^3/uL MPV (7.4-11.4) fL Neut # (Auto) (1.5-6.6) 10^3/uL Lymph # (Auto) (1.5-3.5) 10^3/uL [place] # (Auto) (0.0-1.0) 10^3/uL Eos # (Auto) (0.0-0.7) 10^3/uL Baso # (Auto) (0.0-0.1) 10^3/uL Absolute Nucleated RBC x10^3/uL Band Neuts % (Manual) Abnorm Lymph % (Manual) Nucleated RBC % /100WBC Neutrophils # (Manual) Lymphocytes # (Manual) Monocytes # (Manual) Eosinophils # (Manual) Basophils # (Manual) Differential Comment WBC Morphology (NORMAL) Platelet Estimate (NORMAL) Platelet Morphology (NORMAL) RBC Morph Micro Appear (NORMAL) ESR 18 (0-20) mm/Hr D-Dimer (200.0-255.0) ng/mL Sodium (135-145) mmol/L Potassium (3.5-4.5) mmol/L Chloride (101-111) mmol/L Carbon Dioxide (21-32) mmol/L Anion Gap (6-13) BUN (6-20) mg/dL Creatinine (0.6-1.3) mg/dL Estimated GFR (MDRD) (>89) Glucose (74-104) mg/dL Calcium (8.5-10.3) mg/dL Iron < 10 L (50-212) ug/dL TIBC 531 H (250-450) ug/dL % Saturation TNP Transferrin 379 H (203-362) mg/dL Total Bilirubin (0.2-1.0) mg/dL AST (10-42) IU/L ALT (10-60) IU/L Alkaline Phosphatase (42-121) IU/L Troponin I High Sens 7.2 (2.3-19.7) ng/L C-Reactive Protein < 0.5 (<0.5) mg/dL Total Protein (6.4-8.9) g/dL Albumin (3.2-5.5) g/dL Globulin (2.1-4.2) g/dL Albumin/Globulin Ratio (1.0-2.2) Lipase (11-82) U/L Blood Type Blood Type Recheck Antibody Screen Crossmatch IS Only 07/13/24 Range/Units 15:08 WBC 7.3 (4.8-10.8) x10^3/uL RBC 3.27 L (4.70-6.10) 10^6/uL Hgb 8.1 L (14.0-18.0) g/dL Hct 26.6 L (42.0-52.0) % MCV 81.3 (80.0-94.0) fL MCH 24.8 L (27.0-31.0) pg MCHC 30.5 L (32.0-36.0) g/dL RDW 14.5 (12.0-15.0) % Plt Count 464 H (130-450) 10^3/uL MPV 9.4 (7.4-11.4) fL Neut # (Auto) 3.3 (1.5-6.6) 10^3/uL Lymph # (Auto) 1.7 (1.5-3.5) 10^3/uL [place] # (Auto) 1.1 H (0.0-1.0) 10^3/uL Eos # (Auto) 1.0 H (0.0-0.7) 10^3/uL Baso # (Auto) 0.2 H (0.0-0.1) 10^3/uL Absolute Nucleated RBC 0.00 x10^3/uL Band Neuts % (Manual) Abnorm Lymph % (Manual) Nucleated RBC % 0.0 /100WBC Neutrophils # (Manual) Lymphocytes # (Manual) Monocytes # (Manual) Eosinophils # (Manual) Basophils # (Manual) Differential Comment WBC Morphology (NORMAL) Platelet Estimate (NORMAL) Platelet Morphology (NORMAL) RBC Morph Micro Appear (NORMAL) ESR (0-20) mm/Hr D-Dimer < 200.0 L (200.0-255.0) ng/mL Sodium 135 (135-145) mmol/L Potassium 4.1 (3.5-4.5) mmol/L Chloride 107 (101-111) mmol/L Carbon Dioxide 24 (21-32) mmol/L Anion Gap 4.0 L (6-13) BUN 19 (6-20) mg/dL Creatinine 1.1 (0.6-1.3) mg/dL Estimated GFR (MDRD) 65 L (>89) Glucose 94 (74-104) mg/dL Calcium 8.8 (8.5-10.3) mg/dL Iron (50-212) ug/dL TIBC (250-450) ug/dL % Saturation Transferrin (203-362) mg/dL Total Bilirubin 1.0 (0.2-1.0) mg/dL AST 11 (10-42) IU/L ALT 12 (10-60) IU/L Alkaline Phosphatase 49 (42-121) IU/L Troponin I High Sens 6.9 (2.3-19.7) ng/L C-Reactive Protein (<0.5) mg/dL Total Protein 6.4 (6.4-8.9) g/dL Albumin 3.8 (3.2-5.5) g/dL Globulin 2.6 (2.1-4.2) g/dL Albumin/Globulin Ratio 1.5 (1.0-2.2) Lipase 38 (11-82) U/L Blood Type Blood Type Recheck O POSITIVE Antibody Screen Crossmatch IS Only Conclusion and Plan Consultation Note Consultation Note: This is a 74-year-old gentleman with: 1. Symptomatic anemia -Per the patient's report, his symptoms have coincided with episodes of atrial fibrillation. Is possible that his atrial fibrillation is perpetuated by his anemia. -Patient's hemoglobin on 05/16/2024 was 14.1, and 8.1 on presentation to the hospital yesterday. His hemoglobin has been stable since that time. He has been hemodynamically stable as well. -Benign abdominal exam, the patient does not appear to be actively bleeding. -Patient has a history of H. pylori infection which was treated in 2021. The patient drank alcohol until about 2 weeks ago and recently started back on a blood thinner. He denies any epigastric pain or heartburn symptoms. Given his history of alcohol use and risk factors as listed above, I do think it is reasonable to proceed with an upper endoscopy today and then determine the urgency and need for lower endoscopy. -I discussed the risks, benefits, and alternatives of upper endoscopy with the patient. These include bleeding and perforation. The patient voiced understanding, his questions were answered, and he wished to proceed. A consent was signed by the patient. This procedure is more likely to be diagnostic than therapeutic and can help us rule out an upper gastrointestinal source of bleeding. -We have requested the reports from the patient's last EGD and colonoscopy in 2021 from [facility]. After the patient's upper scope today, and review of his prior endoscopy reports, we can determine if colonoscopy can be done as an outpatient, or should be done during this hospital stay. The patient would very much like to go home. -I have discussed this plan with the patient and the primary team. All parties are in agreement to proceed. 2. Dizziness, double vision, atrial fibrillation, prostate cancer, hyperlipidemia, possible TIA - As per primary team I agree with holding the patient's home Eliquis while he is undergoing workup for gastrointestinal bleeding. Thank you for consulting me in the care of this patient! I will continue to follow closely and will provide further recommendations after endoscopy. Review of Systems Status of ROS: 10 or more systems reviewed and unremarkable except as noted in history and below Exam Exam GEN: No acute distress, appears stated age, alert and oriented HEENT: NCAT, MMM, EOMI NEURO: CN II-XII grossly intact, no obvious focal deficits CV: RRR PULM: Nonlabored, on room air ABD: soft, non tender, no rebound or guarding CIRCULATORY: no clubbing, cyanosis, or edema SKIN: no lesions appreciated LYMPH: no obvious lymphadenopathy MSK: 4/4 strength in all extremities PSYCH: Affect is appropriate
[2024-07-14] MEDS ORDERED: SOTALOL 80 MG TABLET PO SCH (10:46)
--- NOTE | 2024-07-14 10:48 | ANESTHESIA PROCEDURE NOTE ---
Pre-Anesthesia VS, & Labs Diagnosis Surgical Diagnosis:: anemia, melena Procedure Procedure: EGD Vitals Vital Signs: Temp Pulse Resp BP Pulse Ox 36.9 C 67 18 136/76 H 98 07/14/24 10:00 07/14/24 10:00 07/14/24 10:00 07/14/24 10:00 07/14/24 10:00 NPO NPO: >8 hours Lab Results Current Lab Results: Laboratory Tests 07/14/24 10:06: Hgb 8.3 L 07/14/24 05:16: WBC 7.2, RBC 3.33 L, Hgb 8.0 L, Hct 26.9 L, MCV 80.8, MCH 24.0 L , MCHC 29.7 L, RDW 14.6, Plt Count 482 H, MPV 9.6, Neut # (Auto) 3.3, Lymph # (Auto) 1.7, [place] # (Auto) 1.0, Eos # (Auto) 1.0 H, Baso # (Auto) 0.2 H, Absolute Nucleated RBC 0.00, Band Neuts % (Manual) Not Reportable, Abnorm Lymph % (Manual) Not Reportable, Nucleated RBC % 0.0, Neutrophils # (Manual) Not Reportable, Lymphocytes # (Manual) Not Reportable, Monocytes # (Manual) Not Reportable, Eosinophils # (Manual) Not Reportable, Basophils # (Manual) Not Reportable, Differential Comment MANUAL=AUTO DIFF, WBC Morphology NORMAL APPEARANCE, Platelet Estimate INCREASED (>450,000), Platelet Morphology NORMAL APPEARANCE, RBC Morph Micro Appear 1+ HYPOCHROMASIA, Sodium 136, Potassium 4.1, Chloride 109, Carbon Dioxide 22, Anion Gap 5.0 L, BUN 14, Creatinine 1.1, E stimated GFR (MDRD) 65 L, Glucose 94, Calcium 8.4 L 07/14/24 02:05: Hgb 7.8 L, Blood Type O POSITIVE, Antibody Screen NEGATIVE, Crossmatch IS Only See Detail 07/13/24 19:36: Iron < 10 L, TIBC 531 H, % Saturation TNP, Transferrin 379 H 07/13/24 18:36: Hgb 8.3 L, Hct 28.0 L, ESR 18, C-Reactive Protein < 0.5 07/13/24 18:04: Troponin I High Sens 7.2 07/13/24 15:08: WBC 7.3, RBC 3.27 L, Hgb 8.1 L, Hct 26.6 L, MCV 81.3, MCH 24.8 L , MCHC 30.5 L, RDW 14.5, Plt Count 464 H, MPV 9.4, Neut # (Auto) 3.3, Lymph # (Auto) 1.7, [place] # (Auto) 1.1 H, Eos # (Auto) 1.0 H, Baso # (Auto) 0.2 H, Absolute Nucleated RBC 0.00, Nucleated RBC % 0.0, D-Dimer < 200.0 L, Sodium 135, Potassium 4.1, Chloride 107, Carbon Dioxide 24, Anion Gap 4.0 L, BUN 19, Creatinine 1.1, Estimated GFR (MDRD) 65 L, Glucose 94, Calcium 8.8, Total Bilirubin 1.0, AST 11, ALT 12, Alkaline Phosphatase 49, Troponin I High Sens 6.9, Total Protein 6.4, Albumin 3.8, Globulin 2.6, Albumin/Globulin Ratio 1.5, Lipase 38, Blood Type Recheck O POSITIVE Lab results reviewed: Yes 07/14/24 10:06 07/14/24 05:16 Meds/Allgy Home Medications Ambulatory Orders Medication Instructions Recorded Confirmed simvastatin 20 mg tablet (Zocor) 20 mg PO QPM 10/02/23 07/13/24 tadalafil 5 mg tablet See Rx Instructions .Route 02/12/24 07/13/24 .COMPLEX #90 tabs testosterone cypionate 100 mg/mL 80 mg (0.8 mL) IM QWEEK #10 mL 05/28/24 07/13/24 intramuscular oil apixaban 5 mg tablet (Eliquis) 5 mg PO BID 07/13/24 07/13/24 sotalol 80 mg tablet 80 mg PO DAILY 07/13/24 07/13/24 Allergies Allergies Allergy/AdvReac Type Severity Reaction Status Date / Time ibuprofen Allergy Mild Unknown Verified 07/13/24 14:46 PFSH Active Problems All Active Problems Symptomatic anemia (Acute) Chest pain (Acute) Blurred vision (Acute) Melena (Acute) Anemia (Acute) TIA (transient ischemic attack) (Acute) Prostate cancer (Acute) Enlarged prostate (Acute) Screening for thyroid disorder (Acute) Long-term use of high-risk medication (Acute) Hx of atrial flutter (Acute) Hypogonadism male (Acute) Hx of malignant neoplasm of prostate (Acute) Hyperlipidemia (Acute) Preventative health care (Acute) Medical History Medical History Atrial flutter Surgical History Surgical History H/O shoulder surgery left S/P ablation of atrial flutter Family History Family History Father Heart attack Mother CVA (cerebral vascular accident) Brother Alcoholism Social History Social History (Updated 07/14/24 @ 10:36 by Marla Gonzalez MD) Smoking Status: Never smoker Do you dip or chew tobacco?: No Do you vape?: No Living arrangement: At home Marital Status: Relationship: Level: Independent Do you feel safe in your home environment?: Yes Suffered physical, verbal, emotional, or financial abuse?: No History of Abuse: No Frequency: Daily ETOH Use Details: 1-2 Glasses of wine per day, stopped drinking alcohol about 2 weeks ago (06/27/24) Substance Use: denies use Occupation: salesforce consultant Retired: No POLST Patient has POLST: No Anesthesia Exam (Expanded) Exam General: Alert, Oriented x3 and Cooperative Dental: WNL Mouth Opening: Greater than 4 Fingerbreadths Neck Mobility: Normal Mallampati classification: II Thyromental Distance: 4-6 cm Respiratory: Lungs clear and Normal breath sounds Cardiovascular: Regular rate (hx Aflutter with ablation, AFib has occurred since ablation, started elequis last week) Neurological: Normal speech Mental/Cognitive Status: Alert/Oriented X3 and Normal for patient Cognitive Status: Within normal limits Plan Problem List (1) Anemia: Plan: symptomatic anemia. Not tachycardic but beta blocked. no hypotension, but having HERNANDEZ, and dizziness. his visual symptoms could be secondary to his symptomatic anemia, or could be neurological in nature. I will get iron studies with a.m. labs and treat with iron and B vitamins as indicated I will follow hemoglobins every 6 hours. I have discussed this patient with Maurice Monteiro in the emergency department decision was made to admit him for workup of his anemia and neurological symptoms. She states that he is guaiac positive from below. Emergency department has consulted general surgery, Dr. Raphael who will assist with possible endoscopy/colonoscopy. [facility] At that time he was diagnosed with H. pylori and treated appropriately. He has had intermittent melanotic stools for about 5 weeks. He has only been restarted on his Eliquis for about 5 days.I am holding his Eliquis on admission (2) TIA (transient ischemic attack): Plan: Patient with intermittent visual blurring episodes which have happened twice now. This is not like a shade being pulled over his eyes but rather a visual graying that seems to spontaneously resolve. He denies any history of stroke or TIA. He has been on a statin since he was in his 50s due to an elevated coronary calcium score. CTA of the head neck does call attention to a 50% stenosis of the right internal carotid artery. There is no evidence of CVA seen on CT nor does patient have any persistent neurologic deficits at this time. I will admit the patient to observation status. I will place him on telemetry. I will hold his Eliquis (due to likely GI bleed) but continue his beta-raji. I will order MRI of the head for the morning to rule out any occult stroke. Emergency department consulted neurology who recommended ESR and CRP and to start steroids for possible optic neuritis if the acute phase reactants were positive. His CRP is less than 0.5. His ESR is 18. There is no indication to start steroids at this time. (3) Hx of atrial flutter: Plan: No episodes of tachycardia since presenting to the emergency department. He has a history of paroxysmal atrial fibrillation. He is status post ablation some years ago. He has done well with this but started to have symptoms as described above several weeks ago. He may contact with his auto air conditioning installer who is planning a stress test and echocardiogram in the near future. I will be checking an echocardiogram as part of his neurological workup. I am holding his Eliquis but continuing his beta-raji (4) Melena: Plan: Guaiac positive in the emergency department. Patient with a hemoglobin of 14.1 on 05/16/2024 and 8.1 on presentation to the emergency department today. This is symptomatic as he has been experiencing dizziness and shortness of breath on exertion. I think it is possible that his visual changes are also related to his symptomatic anemia but will continue with stroke workup in the instance that this was a TIA (5) Prostate cancer: Plan: He is on tadalafil 2.5 mg a day at home. I will continue this. He also takes estrogen injections weekly. He is under the care of Dr. Heath of urology. Plan Admission for symptomatic anemia/GI bleed, possible TIA. See treatment pathway above. I am admitting him to observation status overnight and will consider conversion to inpatient status depending on findings of serial labs, telemetry monitoring and the opinion of the general surgeon. I have spent 85 minutes in the care of this patient today. This includes time [id number], review and ordering of diagnostic imaging and laboratory studies and consultation with other providers. Monitoring the patient's signs symptoms, evaluation of medication effectiveness and patient's response to treatment. Plan Anesthesia Type: Total IV Consent for Procedure(s) Verified and Reviewed: Yes Code Status: Attempt Resuscitation ASA Classification ASA classification: 3-Severe systemic disease Is this case an emergency?: No
[2024-07-14] MEDS ORDERED: ONDANSETRON 4 MG/2 ML VIAL IVP PRN (11:13)
[2024-07-14] MEDS ORDERED: METOCLOPRAMIDE 10 MG/2 ML VIAL IVP PRN (11:13)
[2024-07-14] MEDS ORDERED: ACETAMINOPHEN 500 MG TABLET PO PRN (11:13)
[2024-07-14] MEDS: diphenhydrAMINE 25 MG CAPSULE PO ONE (11:16)
[2024-07-14] MEDS: FERRIC GLUCONATE 125 MG in SODIUM CHLORIDE 0.9% 100ML 100 ML IV ONE (11:33)
[2024-07-14] MEDS ORDERED: PROPOFOL 200 MG/20 ML VIAL IVP ONE (11:42)
--- NOTE | 2024-07-14 11:43 | MRI Report ---
PROCEDURE: MRI Brain WO INDICATIONS: visual changes TECHNIQUE: Noncontrast axial T1 spin echo, axial T2 fast spin echo, sagittal and axial FLAIR, coronal T2 fast sp in echo, axial gradient echo, axial diffusion and ADC through the brain. COMPARISON: CT examinations dated 07/13/2024 FINDINGS: Image quality: Excellent. CSF Spaces: Basal cisterns are patent. No extra-axial fluid collections. Ventricles are normal in size and shape. Brain: No intracranial masses or hemorrhage. [place]/white matter interface is normal. There is modera te diffuse cerebral volume loss. Mild degree of patchy high FLAIR signal within the periventricular a nd subcortical white matter. Brainstem appears normal. Diffusion-weighted images demonstrate no acut e ischemic insult. No chronic ischemic insults. Normal intravascular flow voids are present. Skull and face: Calvarium has normal marrow signal. Orbits appear normal. Sinuses: Moderate bilateral ethmoid, moderate right frontal, mild left frontal, and mild bilateral ma xillary sinus because of thickening. Mastoids are clear. IMPRESSION: 1. No acute process. No recent infarct. 2. Sinus disease. 3. Volume loss and small vessel ischemic disease. Reviewed by: Ana Chávez MD on 07/14/2024 11:41 AM PDT Approved by: Ana Chávez MD on 07/14/2024 11:41 AM PDT Station ID: [id number]
[2024-07-14] MEDS ORDERED: LIDOCAINE-MPF 2% 5 ML VIAL ONE (11:45)
--- NOTE | 2024-07-14 12:04 | PHARMACY PROGRESS NOTE ---
Best Possible Medication History Admit Date and Time: 07/13/241914 Home Medications Medication Instructions Recorded Confirmed Type simvastatin 20 mg tablet (Zocor) 20 mg PO QPM 10/02/23 07/13/24 History tadalafil 5 mg tablet See Rx Instructions .Route 02/12/24 07/13/24 Rx .COMPLEX #90 tabs testosterone cypionate 100 mg/mL 80 mg (0.8 mL) IM QWEEK #10 mL 05/28/24 07/13/24 Rx intramuscular oil apixaban 5 mg tablet (Eliquis) 5 mg PO BID 07/13/24 07/13/24 History sotalol 80 mg tablet 80 mg PO DAILY 07/13/24 07/13/24 History Medications reviewed in ED?: No Medication History completed: Yes Patient Interview: Completed Secondary Source(s): Insurance records [facility] Statement: Per patient interview with pharmacist and review of [employer] insurance records. As the person ultimately responsible for medication therapy, providers are able to order a medication from an existing home medication list in [facility] via the "Reconcile Routine" prior to Confirmation of that medication by client support coordinator. Such practice is discouraged except when the physician, in their clinical judgment, deems that a medical need exists for a medication without regard to previous use.
[2024-07-14] MEDS ORDERED: TETRACAINE/BENZOCAINE/BUTAMBEN 5 GM BOTTLE ONE (12:46)
--- NOTE | 2024-07-14 13:16 | ANESTHESIA POST OP EVALUATION ---
Anesthesia Post Eval Post Anesthesia Eval Vitals: Last Vital Signs Temp 36.9 C 07/14/24 10:00 Pulse 67 07/14/24 10:00 Resp 18 07/14/24 10:00 BP 136/76 H 07/14/24 10:00 Pulse Ox 98 07/14/24 10:00 CV Function Including HR & BP: Stable Pain Control: Satisfactory Nausea & Vomiting: Negative Mental Status: Baseline Respiratory Status: Airway Patent Hydration Status: Satisfactory Anesthesia Complications: None
--- NOTE | 2024-07-14 13:57 | Discharge Summary ---
Discharge Summary Admit Date: 07/13/24 Discharge Date: 07/14/24 Discharging Provider: Cyn Wagner PA-C Primary Care Provider: Carisa Jarrett Code Status: Attempt Resuscitation DIAGNOSES Discharge Diagnoses with Status of Each Condition: Symptomatic anemia, transfused and symptoms improved. Should follow-up with PCP and general surgery Possible TIA. CT of the head negative MRI of the brain negative CTA of the head neck indicative of 50% stenosis in the right ICA that should be followed History of atrial flutter recently cardiology recommended that he resume his Eliquis and sotalol. Some of his symptoms have been correlated with the vents on his loop recorder. It is also possible that the anemia is causing the cardiac arrhythmias which are leading to his symptoms. Melena. Guaiac positive in the emergency department. Correlates with findings on endoscopy. Prostate cancer: Continue follow-up with urology and current medications. HPI History of Present Illness: 74 yo male who presents to ED 07/14/2024 with complaints of feeling poorly. for the last 2-3 weeks has had CP and decreased exercise tolerance. Saw head of commission department, then was restarted on Eliquis and sotolol (paroxysmal a fib s/p ablation) within the last week. previously was on ASA. Today came to ED because he had an episode of his left eye "graying out". this lasted about 15 sec, and now patient is back to normal. no headaches. He has had 1 additional episode of this in the last week or so He notes that on 06/02 he started to notice that he gets out of breath when he walks his dog. he has always enjoyed a high level of cardiovascular fitness. It was about 5 weeks ago that he noted that his heart rate, which is normally in the 60's started to be in the 70's and 80's. Around this time, also noted that he was getting short breath when he walked the dog. notes intermittent abdominal bloating, and feeling "gurgly" in his abdomen which is often followed by a melanotic stool, since about mid May. He has a history of paroxysmal atrial fibrillation. He is status post ablation. His cardiologists are Evert Padilla and Sukhdeep Ponce at [facility]. When he started to notice this shortness of breath and chest discomfort he called his head of commission department who recommended that he restart his sotalol and his Eliquis. Less than a week ago he started sotalol 80 mg at at bedtime and Eliquis 5 mg twice daily. He was previously on tadalafil 2.5 mg a day for prostate cancer testosterone once weekly and D3. As noted above he had also been on aspirin but dropped this in favor of the Eliquis. He has noted intermittent melena for quite a long time. He has been treated for H. pylori in the past. He notes that this was diagnosed in April 2021 at [facility] when he had previous GI bleed and was treated with endoscopy and colonoscopy and thus the H. pylori diagnosis. He has been on a statin since he was in his 50s. He had an elevated coronary calcium score many years ago and was started on a statin at that time but really has not had any problems until the atrial fibrillation came up. He has a loop recorder, unclear if that is MRI compatible. He states he does have an advanced directive but has been a long time since he is thought about that. He does not have a POLST. He does not know what he would want his CODE STATUS to be. He notes that his Jody would be his surrogate decision maker should he need 1. I am making him full code until he can think about this more. Hgb was 14.1 on 05/16/24. It is 8.1 today. CONSULTS | PROCEDURES Consultations: General Sugery Procedures: Esophagogastroduodenoscopy (EGD) HOSPITAL COURSE Hospital Course: 1. Anemia, symptomatic * Symptoms present on admission have resolved. * Iron was replenished. * Hemoglobin remained between 7.8-8.3 so 1 unit PRBCs was given * EGD and Brain MRI - unremarkable for acute pathology or bleed. * Plan: * Follow up with PCP * Repeat CBC and iron labs * Biopsy sent for H.pylori testing - waiting to treat until results are received. * Recommend outpatient colonoscopy -- requested past colonoscopy results 2. TIA * Symptoms present on admission have resolved. * CTA showed 50% stenosis of right internal carotid artery - no evidence of CVA * Brain MRI - unremarkable for acute pathology * Plan: * Continue Sotalol 80 mg * Continue Simvastatin 20 mg * Restart Eliquis based on head of commission department recommendation 3. Hx of atrial flutter * Denies any cardiovascular symptoms at this time. * No episodes of tachycardia since admission - continued his beta-raji during his stay. * Plan: * Awaiting results of echo * Continue sotalol 80 mg * Restart Eliquis based on head of commission department recommendation * Follow up with head of commission department 4. Melena * No signs or symptoms at this time. * Hemoglobin is 8.3 so he was given 1 unit PRBCs * EGD unremarkable * Plan: * Recommend outpatient colonoscopy * Awaiting H.pylori results. * Repeat CBC 5. Prostate Cancer * Plan * Continue under care of Dr. Heath (urology) * Continue tadalafil 2.5 mg a day. * Continue estrogen injections as prescribed. ALLERGIES Allergies Allergy/AdvReac Type Severity Reaction Status Date / Time ibuprofen Allergy Mild Unknown Verified 07/13/24 14:46 MEDICATIONS Ambulatory Orders Medication Instructions Recorded Confirmed simvastatin 20 mg tablet (Zocor) 20 mg PO QPM 10/02/23 07/13/24 tadalafil 5 mg tablet See Rx Instructions .Route 02/12/24 07/13/24 .COMPLEX #90 tabs testosterone cypionate 100 mg/mL 80 mg (0.8 mL) IM QWEEK #10 mL 05/28/24 07/13/24 intramuscular oil apixaban 5 mg tablet (Eliquis) 5 mg PO BID 07/13/24 07/13/24 sotalol 80 mg tablet 80 mg PO DAILY 07/13/24 07/13/24 pantoprazole 40 mg tablet,delayed 40 mg PO DAILY #30 tabs 07/14/24 release (Protonix) PHYSICAL EXAM AT DISCHARGE General Appearance: positive No acute distress and Alert Eyes Bilateral: positive Normal inspection, PERRL and EOMI ENT: positive ENT inspection nml, Pharynx nml and No signs of dehydration Neck: positive Nml inspection, No JVD and Trachea midline Respiratory: positive Chest non-tender, No respiratory distress and Breath sounds nml Cardiovascular: positive Regular rate & rhythm, No murmur and No gallop Peripheral Pulses: positive 2+ Abdomen: positive Non-tender, No organomegaly, Nml bowel sounds and No distention Skin: positive Color nml, Warm and Dry Extremities: positive Non-tender and No pedal edema Neurologic/Psychiatric: positive Oriented x3, CN's nml (2-12), Motor nml and Mood/affect nml LABS 07/14/24 18:00 07/14/24 05:16 DIAGNOSTIC IMAGING Diagnostic Imaging Results: Final report reviewed Diagnostic Imaging Results Comments: Brain MRI * IMPRESSION: * No acute process. No recent infarct. * Sinus disease. * Volume loss and small vessel ischemic disease. Head CT -- * Unremarkable CTA -- * IMPRESSION: * No significant intracranial arterial abnormality is seen. * No significant abnormality is seen within the arteries of the neck, with note made of a 50% narrowing at the origin of the right internal carotid artery. CXR -- * Uremarkable FOLLOW UP Follow Up: Cardiology: Evert Padilla and Sukhdeep Ponce at [facility] PCP: LUIS Jarrett TIME SPENT Time Spent in Discharge (Minutes): 45 Discharge Plan Discharge Patient Disposition: Home, Self Care Condition: Stable Medically Cleared Date:: 07/14/24 Prescriptions: New pantoprazole [Protonix] 40 mg tablet,delayed release (DR/EC) 40 mg PO DAILY Qty: 30 2RF Continued tadalafil 5 mg tablet See Rx Instructions .ROUTE .COMPLEX Qty: 90 3RF Dose Instruction: TAKE ONE TABLET BY MOUTH ONE TIME DAILY Rx Instructions: TAKE ONE TABLET BY MOUTH ONE TIME DAILY simvastatin [Zocor] 20 MG tablet 20 mg PO QPM Eliquis 5 mg tablet 5 mg PO BID sotalol 80 mg tablet 80 mg PO DAILY testosterone cypionate 100 mg/mL oil 80 mg IM QWEEK Qty: 10 2RF Diet: Regular Interventions: Belongings Inventory Last Done: 07/13/24 22:20 Health Concerns: Followup with Dr Gonzalez at 845am on July. You are a 74-year-old male with a history of atrial fibrillation and atrial flutter as well as prostate cancer who presented to the hospital with some complaints of visual changes dyspnea on exertion decreased exercise tolerance and fatigue. This has been going on for about 5 weeks. Your blood counts for your red blood cells were much lower than they had been several weeks ago. You are brought into the hospital and we looked for any signs or symptoms of stroke. Your MRI of the brain and CT were both normal and negative. On the vascular imaging of your neck we did note a 50% stenosis of the right internal carotid artery. This should be followed but nothing to be done about it at this time Additionally we are recommending that you continue your Eliquis and your sotalol at this time. Also continue your follow-up plan with your heart doctor. You had an echocardiogram while you were here in the hospital. That result is pending. Dr. Gonzalez took you to the operating room today and put a camera into your stomach. She did see some ulcerations in your stomach that were not actively bleeding and looks like they were healing. She sent the test for H. pylori. Hopefully we will have that back at the end of the week and she will call you if it is positive. For now I want you to start taking some acid reflux medicine called Protonix. I have called that into the community pharmacy here at [facility]. It is fine for you to pick that up tomorrow and start it. Generally, you take that in the morning about 30 minutes before you eat with a sip of water Likely talked about I want you to live your life and have quality of life so you do not have to completely give up things like coffee and an enjoyable glass of wine with friends. If you can switch to tea that is not a bad thing and it could be very good for your health. You did get a unit of blood while you were here and we did that to try to help you feel a little bit better we brought your hemoglobin from around 8 to above 9. That should help. I am also still trying to obtain records from [facility] regarding your last endoscopy. I will be sending those to Dr. Gonzalez if and when I receive them. If you start to feel weak and dizzy you need to have your blood count checked. You also need to call your primary care physician or go to the emergency department if you start to notice black dark tarry sticky stools. You have received an iron infusion while you were here. I would recommend that you have repeat iron studies done by your primary care provider in the next week or 2 and then be treated accordingly. You may need to go back on oral iron supplements. Print Language: Slovenian Patient Instructions: Surgery Anesthesia After Follow-up Care: Marla Gonzalez MD [Provider Admit Priv/Credential] - (845AM ON July) EVERT PADILLA MD [Physician No Access] - Mey Jarrett ARNP [Provider Admit Priv/Credential] -
[2024-07-14 17:09] VITALS: BP 130/69; TEMP 98.1; O2SAT 97
== END 2024-07-14 20:09 | disposition home or self-care (01) ==
LOC: ED 13:58 → MS2 13:58
PROVIDERS: ADMIT Physician Assistant Medical; ATTEND Physician Assistant Medical
DX: I48.92 Unspecified atrial flutter; I65.21 Occlusion and stenosis of right carotid artery; E78.5 Hyperlipidemia, unspecified; Z79.01 Long term (current) use of anticoagulants; K25.4 Chronic or unspecified gastric ulcer with hemorrhage; D50.0 Iron deficiency anemia secondary to blood loss (chronic); I48.0 Paroxysmal atrial fibrillation; C61 Malignant neoplasm of prostate; K29.71 Gastritis, unspecified, with bleeding; Z79.899 Other long term (current) drug therapy